=== PATIENT | female | born 1960 | race Caucasian/White ===

== ENCOUNTER 2023-02-09 11:17 | Emergency (ER) | payer OTHER ==
[2023-02-09] MEDS ORDERED: Ketorolac Tromethamine 30 MG/ML VIAL ONE (13:07)
== END 2023-02-09 13:55 | disposition home or self-care (01) ==
LOC: CSHERS 11:17
DX: S52.551A Other extraarticular fracture of lower end of right radius, initial encounter for closed fracture (principal); S52.612A Displaced fracture of left ulna styloid process, initial encounter for closed fracture; E03.9 Hypothyroidism, unspecified; Z79.899 Other long term (current) drug therapy; W01.0XXA Fall on same level from slipping, tripping and stumbling without subsequent striking against object, initial encounter
CPT/HCPCS: 29125; 96372; J1885

== ENCOUNTER 2023-07-05 12:59 | Outpatient (CLI) | payer OTHER | END 2023-07-05 13:00 | disposition home or self-care (01) | LOC: CSHMAMMO 12:59 | PROVIDERS: ATTEND Obstetrics & Gynecology | DX: Z12.31 Encounter for screening mammogram for malignant neoplasm of breast (principal) | CPT/HCPCS: 77063; 77067 ==

== ENCOUNTER 2024-07-08 14:15 | Outpatient (CLI) | payer OTHER | END 2024-07-08 14:16 | disposition home or self-care (01) | LOC: CSHMAMMO 14:15 | PROVIDERS: ATTEND Student in an Organized Health Care Education/Training Program | DX: Z12.31 Encounter for screening mammogram for malignant neoplasm of breast (principal); Z98.890 Other specified postprocedural states | CPT/HCPCS: 77063; 77067 ==